=== PATIENT | female | born 1955 | race Caucasian/White ===

== ENCOUNTER 2022-04-21 16:12 | Emergency (ER) | payer MEDICARE, OTHER ==
[2022-04-21 16:22] VITALS: BP 141/91
[2022-04-21] MEDS ORDERED: RABIES VACCINE 2.5 UNIT SYRINGE IM ONE (16:47)
--- NOTE | 2022-04-21 17:00 | ED Physician Documentation ---
History of Present Illness - Stated complaint Stated Complaint: NEED RABIES VACCINE - Chief complaint Chief Complaint: General - History obtained from History obtained from: Patient - History of Present Illness Timing: Today Pain level max: 0 Pain level now: 0 - Additonal information Additional information: 66-year-old female status post a bat exposure. She has received 1 dose of rabies vaccination and immunoglobulin. Here for her second vaccination. Patient asymptomatic Review of Systems Constitutional: denies: Fever PD PAST MEDICAL HISTORY - Past Medical History Past Medical History: No - Past Surgical History Past Surgical History: Yes - Present Medications Home Medications: Ambulatory Orders Medication Instructions Recorded Confirmed Rabies Vaccine [Rabavert] 2.5 unit IM ONCE #3 04/18/22 - Allergies Allergies/Adverse Reactions: Allergies Allergy/AdvReac Type Severity Reaction Status Date / Time ciprofloxacin [From Cipro] Allergy Nausea Verified 04/18/22 19:10 naproxen [From Naprosyn] Allergy Rash Verified 04/18/22 19:10 Penicillins Allergy Unknown Verified 04/18/22 19:10 Sulfa (Sulfonamide Allergy Anaphylaxis Verified 04/18/22 19:10 Antibiotics) tetracycline Allergy Rash Verified 04/18/22 19:10 - Social History Does the pt smoke?: No Smoking Status: Never smoker Does the pt drink ETOH?: No Does the pt have substance abuse?: No - Immunizations Immunizations are current?: Yes - POLST Patient has POLST: No PD ED PE NORMAL - Vitals Vital signs reviewed: Yes - General General: Alert and oriented X 3, No acute distress - HEENT HEENT: Moist mucous membranes - Derm Derm: Warm and dry - Neuro Neuro: Alert and oriented X 3 Results - Vitals Vitals: Vital Signs - 24 hr 04/21/22 16:17 Temperature 36.0 C L Heart Rate 83 Respiratory 16 Rate Blood Pressure 141/91 H O2 Saturation 97 Oxygen O2 Source Room air PD MEDICAL DECISION MAKING - ED course Complexity details: considered differential, d/w patient ED course: Patient administered her second rabies vaccination. She will still need 2 more doses. This document was made in part using voice recognition software. While efforts are made to proofread this document, sound alike and grammatical errors may occur. Departure - Departure Disposition: 01 Home, Self Care Clinical Impression: Exposure to bat without known bite, Need for rabies vaccination Condition: Good Instructions: Rabies Vaccine suspension for injection Comments: You will need 2 more rabies vaccinations. These will be done on day 7 and day 14. Today is day 3. If you are unable to obtain them at the [facility], you can return to the emergency department for the remainder of the vaccinations. Discharge Date/Time: 04/21/22 17:06
== END 2022-04-21 17:06 | disposition home or self-care (01) ==
LOC: ED 16:12
DX: Z20.3 Contact with and (suspected) exposure to rabies (principal); Z23 Encounter for immunization; Z71.85 Encounter for immunization safety counseling
CPT/HCPCS: 90471; 99281; 99282